=== PATIENT | female | born 1995 | race African-American/Black ===

== ENCOUNTER 2025-05-30 06:02 | Emergency (ER) | payer MEDICAID ==
[~2025-05-30] VITALS: Ht 172.7 cm; Wt 173.0 kg
[2025-05-30 06:10] VITALS: O2SAT 97
[2025-05-30] MEDS: LORAZEPAM 0.5MG TABLET PO ONE (07:22)
[2025-05-30] MEDS: ONDANSETRON 4MG ODT PO ONE (07:22)
[2025-05-30 07:23] VITALS: BP 134/73; PULSE 75; RESP 15; TEMP 36.9; O2SAT 95
== END 2025-05-30 07:24 | disposition home or self-care (01) ==
LOC: ER 06:02
DX: F19.10 Other psychoactive substance abuse, uncomplicated (principal)
CPT/HCPCS: 99283; 93005; Q0162